=== PATIENT | male | born 1995 ===

== ENCOUNTER 2017-11-22 04:01 | Emergency (ER) | payer SELFPAY ==
[2017-11-22 04:22] VITALS: BMI 24.2
[2017-11-22 04:26] VITALS: RESP 18; O2SAT 100
--- NOTE | 2017-11-22 05:10 | C.PDOC ---
History Of Present Illness Pt is a 22 yo who presents with public intoxication.Denies any acute complaints.No hx of acute trauma Time Seen by Provider: 11/22/17 05:05 Chief Complaint (Nursing): Substance Abuse Past Medical History Vital Signs: Last Vital Signs Temp 97.6 F 11/22/17 04:22 Pulse 106 H 11/22/17 04:22 Resp 18 11/22/17 04:22 BP 117/57 L 11/22/17 04:22 Pulse Ox 100 11/22/17 05:29 - Social History Hx Alcohol Use: Yes Hx Substance Use: No - Immunization History Hx Tetanus Toxoid Vaccination: No Hx Influenza Vaccination: No Hx Pneumococcal Vaccination: No ED Course And Treatment O2 Sat by Pulse Oximetry: 100 Disposition - Disposition Forms: [facility] (Italian)
[2017-11-22 06:23] LABS: BASO % 0.3 % (0.0-2.0); EOS % 0.2 % (0.0-4.0); HEMOGLOBIN 15.3 g/dL (12.0-18.0); LYMPH # 1.4 K/uL (1.0-4.3); LYMPH % 21.3 % (20.0-40.0); MEAN CELL VOLUME 89.8 fL (80.0-94.0); MEAN CORPUSCULAR HEMOGLOBIN 31.1 pg (27.0-31.0); MEAN CORPUSCULAR HGB CONC 34.7 g/dL (33.0-37.0); MEAN PLATELET VOLUME 9.1 fL (7.2-11.7); MONO # 0.4 K/uL (0.0-0.8); MONO % 5.7 % (0.0-10.0); NEUT # 4.7 K/uL (1.8-7.0); NEUT % 72.5 % (50.0-75.0); NRBC % 0.1 % (0.0-2.0); RBC 4.92 Mil/uL (4.40-5.90); RED CELL DISTRIBUTION WIDTH 13.3 % (11.5-14.5); WHITE BLOOD COUNT 6.5 K/uL (4.8-10.8)
[2017-11-22 06:30] LABS: URINE BILIRUBIN NEGATIVE (NEGATIVE); URINE BLOOD NEGATIVE (NEGATIVE); URINE CLARITY Clear (Clear); URINE COLOR Straw (YELLOW); URINE GLUCOSE (UA) NORMAL (Normal); URINE LEUKOCYTE ESTERASE NEG Leu/uL (Negative); URINE PROTEIN NEGATIVE (NEGATIVE); URINE UROBILINOGEN NORMAL mg/dL (0.2-1.0)
--- NOTE | 2017-11-22 06:37 | C.PDOC ---
History Of Present Illness 22 year old male brought in by EMS for EtOH intoxication. Patient himself expresses no particular complications. Patient must be physically aroused from intoxicated state to get a response. Patient has alcohol on breath. Time Seen by Provider: 11/22/17 05:05 Chief Complaint (Nursing): Substance Abuse History Per: Patient, EMS History/Exam Limitations: no limitations Onset/Duration Of Symptoms: Hrs Current Symptoms Are (Timing): Still Present Suicide/Self Injury Attempted (Context): None Modifying Factor(s): Alcohol Past Medical History Reviewed: Historical Data, Nursing Documentation, Vital Signs Vital Signs: Last Vital Signs Temp 97.8 F 11/22/17 06:44 Pulse 89 11/22/17 06:44 Resp 18 11/22/17 06:44 BP 109/72 11/22/17 06:44 Pulse Ox 100 11/22/17 06:44 Surgical History: No Surg Hx Family History: States: Unknown Family Hx - Social History Hx Alcohol Use: Yes Hx Substance Use: No - Immunization History Hx Tetanus Toxoid Vaccination: No Hx Influenza Vaccination: No Hx Pneumococcal Vaccination: No Review Of Systems Review Of Systems: ROS cannot be obtained secondary to pt's inabilty to answer questions. (due to patient's intoxicated state) Physical Exam - Physical Exam Appears: Other (somnolent but arrousable) Head: Atraumatic, Normacephalic, Other (no external evidence of head injury) Neck: Normal, Supple Cardiovascular: Rhythm Regular (s1 and s2 are within normal limits) Pulses: Left Dorsalis Pedis: Normal (2+ distal pulses), Right Dorsalis Pedis: Normal (2+ distal pulses) Neurological/Psych: Other (patient appears to be intoxicated. Uncooperative for a formal neurological exam. ) ED Course And Treatment - Laboratory Results Result Diagrams: 11/22/17 06:17 11/22/17 06:17 O2 Sat by Pulse Oximetry: 100 (RA) Pulse Ox Interpretation: Normal Medical Decision Making Medical Decision Making: Impression: Alcohol or poly-substance intoxication Time: 616 Plan: -- Alcohol Seruym -- CMP -- Drug Screen Urine -- CBC with differentials -- Urinalysis Time: 06 Patient is awake, looking around and awaiting labs Time: 640 Patient alcohol level is 216. Patient will be discharged home. Disposition - Disposition Referrals: Alcoholics Anonymous [Outside] Disposition: HOME/ ROUTINE Disposition Time: 19:15 Condition: GOOD Instructions: Alcohol Use - When Is Drinking a Problem? Forms: [facility] (Polish) Print Language: SALVADOREAN - Clinical Impression Clinical Impression: Alcohol intoxication - Scribe Statement The provider has reviewed the documentation as recorded by the Marley Andrade Provider Attestation: All medical record entries made by the Marley were at my direction and personally dictated by me. I have reviewed the chart and agree that the record accurately reflects my personal performance of the history, physical exam, medical decision making, and the department course for this patient. I have also personally directed, reviewed, and agree with the discharge instructions and disposition.
[2017-11-22 06:39] LABS: ALB/GLOB RATIO 1.3 (1.0-2.1); ALBUMIN 4.1 g/dL (3.5-5.0); ALT/SGPT 36 U/L (21-72); AST/SGOT 28 U/L (17-59); BLOOD UREA NITROGEN 10 mg/dL (9-20); CALCIUM 8.4 mg/dl (8.6-10.4); GFR AFRICAN-AMERICAN > 60; GFR NON-AFRICAN AMERICAN > 60
[2017-11-22 06:44] LABS: BARBITURATES, UR NEGATIVE (NEGATIVE); BENZODIAZEPINES, UR NEGATIVE (NEGATIVE); OPIATES, UR NEGATIVE (NEGATIVE); PHENCYCLIDINE, UR NEGATIVE (NEGATIVE)
[2017-11-22 06:45] VITALS: BP 109/72; PULSE 89; TEMP 97.8
== END 2017-11-22 07:05 | disposition home or self-care (01) ==
LOC: C.ER 04:01
DX: F10.129 Alcohol abuse with intoxication, unspecified (principal); Y90.7 Blood alcohol level of 200-239 mg/100 ml
CPT/HCPCS: 80053; 81001; 82948; 85025; 99284; G0480